=== PATIENT | male | born 2000 | race Hispanic/Latino ===

== ENCOUNTER 2018-06-17 18:09 | Emergency (ER) | payer OTHER, SELFPAY ==
--- NOTE | 2018-06-18 08:06 | EDPHYS ---
Physician Documentation [facility] Name: Carlos Enrique Kraft Age: 18 yrs Sex: Male : 2000 Arrival Date: 06/18/2018 Time: 07:18 Bed 14 Private MD: ED Physician Anjum Velazquez HPI: 06/18 08:17 This 18 yrs old Male presents to ER via Ambulatory with complaints of Foot jr8 Pain. 08:17 The complaints affect the dorsum of left foot. Onset: The symptoms/episode jr8 began/occurred gradually, 2 day(s) ago. Modifying factors: The symptoms are alleviated by nothing. the symptoms are aggravated by movement, weight bearing. Associated signs and symptoms: The patient has no apparent associated signs or symptoms. Severity of symptoms: At their worst the symptoms were mild, in the emergency department the symptoms are unchanged. The patient has not experienced similar symptoms in the past. The patient has not recently seen a physician. Patient noticed that his left 3rd toe was starting to look infected. Had drained mild amount of exudate from toe yesterday . Historical: - Allergies: 07:29 No Known Allergies; hb - Home Meds: 07:29 paroxetine oral oral [Active]; hb - PMHx: 07:29 None; hb - PSHx: 07:29 Tonsillectomy; hb - Immunization history:: Adult Immunizations up to date. - Social history:: Smoking status: Patient uses tobacco products, smokes one pack cigarettes per day. - Ebola Screening: : No symptoms or risks identified at this time. ROS: 08:17 Eyes: Negative for injury, pain, redness, and discharge, ENT: Negative for injury, jr8 pain, and discharge, Neck: Negative for injury, pain, and swelling, Cardiovascular: Negative for chest pain, palpitations, and edema, Respiratory: Negative for shortness of breath, cough, wheezing, and pleuritic chest pain, Abdomen/GI: Negative for abdominal pain, nausea, vomiting, diarrhea, and constipation, Back: Negative for injury and pain, MS/Extremity: Negative for injury and deformity, Neuro: Negative for headache, weakness, numbness, tingling, and seizure. 08:17 Skin: Positive for erythema, of the left 3rd toe. Exam: 08:17 Eyes: Pupils equal round and reactive to light, extra-ocular motions intact. Lids and jr8 lashes normal. Conjunctiva and sclera are non-icteric and not injected. Cornea within normal limits. Periorbital areas with no swelling, redness, or edema. ENT: Nares patent. No nasal discharge, no septal abnormalities noted. Tympanic membranes are normal and external auditory canals are clear. Oropharynx with no redness, swelling, or masses, exudates, or evidence of obstruction, uvula midline. Mucous membranes moist. Neck: Trachea midline, no thyromegaly or masses palpated, and no cervical lymphadenopathy. Supple, full range of motion without nuchal rigidity, or vertebral point tenderness. No Meningismus. Cardiovascular: Regular rate and rhythm with a normal S1 and S2. No gallops, murmurs, or rubs. Normal PMI, no JVD. No pulse deficits. Respiratory: Lungs have equal breath sounds bilaterally, clear to auscultation and percussion. No rales, rhonchi or wheezes noted. No increased work of breathing, no retractions or nasal flaring. Abdomen/GI: Soft, non-tender, with normal bowel sounds. No distension or tympany. No guarding or rebound. No evidence of tenderness throughout. Back: No spinal tenderness. No costovertebral tenderness. Full range of motion. MS/ Extremity: Pulses equal, no cyanosis. Neurovascular intact. Full, normal range of motion. Neuro: Awake and alert, GCS 15, oriented to person, place, time, and situation. Cranial nerves II-XII grossly intact. Motor strength 5/5 in all extremities. Sensory grossly intact. Cerebellar exam normal. Normal gait. 08:17 Skin: patient's left 3rd toe dorsal aspect has mild excoriated christian to DIP with mild erythema to that region. No abscess noted. No fluctuance noted . Vital Signs: 07:29 BP 143 / 92; Pulse 98; Resp 16; Temp 98.7; Pulse Ox 100% on R/A; Pain 2/10; hb MDM: 07:34 Patient medically screened. jr8 08:04 Data reviewed: vital signs, nurses notes, and as a result, I will discharge patient. jr8 Data interpreted: Pulse oximetry: on room air is 100 %. Interpretation: normal. Counseling: I had a detailed discussion with the patient and/or guardian regarding: the historical points, exam findings, and any diagnostic results supporting the discharge/admit diagnosis, the need for outpatient follow up, a family practitioner, to return to the emergency department if symptoms worsen or persist or if there are any questions or concerns that arise at home. Administered Medications: No medications were administered Disposition: 06/18/18 08:05 Discharged to Home. Impression: Cellulitis of left toe. - Condition is Stable. - Discharge Instructions: Cellulitis, Adult, Paronychia. - Prescriptions for Bactroban 2 % Topical Ointment - Apply to affected area 1 application by TOPICAL route every 12 hours; 30 gram. Keflex 500 mg Oral Capsule - take 1 capsule by ORAL route every 6 hours for 7 days; 28 capsule. - Medication Reconciliation Form, Thank You Letter, Antibiotic Education, Prescription Opioid Use form. - Follow up: Private Physician; When: 5 - 6 days; Reason: Wound Recheck, Recheck today's complaints, Continuance of care, Re-evaluation by your physician. - Problem is new. - Symptoms have improved. Addendum: 06/21/2018 19:30 Co-signature as Attending Physician, Anjum Velazquez MD. g s Signatures: Jerardo Ricardo PA PA jr8 Cordelia Levine RN RN Anjum Velazquez MD MD Dinorah Bower RN RN ls4 Corrections: (The following items were deleted from the chart) 06/18 08:17 08:05 06/18/2018 08:05 Discharged to Home. Impression: Cellulitis of left toe. ls4 Condition is Stable. Forms are Medication Reconciliation Form, Thank You Letter, Antibiotic Education, Prescription Opioid Use. Follow up: Private Physician; When: 5 - 6 days; Reason: Wound Recheck, Recheck today's complaints, Continuance of care, Re-evaluation by your physician. Problem is new. Symptoms have improved. jr8
--- NOTE | 2018-06-18 08:06 | ER ---
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 Transition of care: patient was not received from another setting of care. Onset of symptoms was June 2018. Risk Assessment: Do you want to hurt yourself or someone else? Patient reports no desire to harm self or others. Initial Sepsis Screen: Does the patient meet any 2 criteria? No. Patient's initial sepsis screen is negative. Does the patient have a suspected source of infection? No. Patient's initial sepsis screen is negative. Care prior to arrival: None. 07:28 Method Of Arrival: Ambulatory hb 07:28 Acuity: KRISTEL 4 hb Triage Assessment: 07:43 General: Appears in no apparent distress. Behavior is calm, cooperative. ls4 Historical: - Allergies: 07:29 No Known Allergies; hb - Home Meds: 07:29 paroxetine oral oral [Active]; hb - PMHx: 07:29 None; hb - PSHx: 07:29 Tonsillectomy; hb - Immunization history:: Adult Immunizations up to date. - Social history:: Smoking status: Patient uses tobacco products, smokes one pack cigarettes per day. - Ebola Screening: : No symptoms or risks identified at this time. Screenin:30 Abuse screen: Denies threats or abuse. Denies injuries from another. Nutritional hb screening: No deficits noted. Tuberculosis screening: No symptoms or risk factors identified. Fall Risk None identified. Assessment: 07:30 Pain: Complains of pain in dorsum of left foot. ls4 Vital Signs: 07:29 BP 143 / 92; Pulse 98; Resp 16; Temp 98.7; Pulse Ox 100% on R/A; Pain 2/10; hb ED Course: 07:18 Patient arrived in ED. tw3 07:24 Dinorah Bower, RN is Primary Nurse. ls4 07:29 Triage completed. hb 07:29 Arm band placed on. hb 07:30 Patient has correct armband on for positive identification. Call light in reach. Side ls4 rails up X 1. 07:34 Jerardo Ricardo PA is PHCP. jr8 07:34 Anjum Velazquez MD is Attending Physician. jr8 08:17 No provider procedures requiring assistance completed. ls4 08:17 Patient did not have IV access during this emergency room visit. ls4 Administered Medications: No medications were administered Outcome: 08:05 Discharge ordered by . jr8 08:15 Condition: good ls4 08:15 Discharged to home ambulatory, with family. ls4 08:15 Discharge instructions given to patient, family, Instructed on discharge instructions, follow up and referral plans. medication usage, Demonstrated understanding of instructions, follow-up care, medications, Prescriptions given X 2. 08:17 Patient left the ED. 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 hb
== END 2018-06-18 08:17 | disposition home or self-care (01) ==
LOC: ER 18:09
DX: L03.032 Cellulitis of left toe (principal); F17.210 Nicotine dependence, cigarettes, uncomplicated
CPT/HCPCS: 99282

== ENCOUNTER 2019-12-23 21:06 | Emergency (ER) | payer SELFPAY ==
[2019-12-23 22:29] LABS: Absolute Lymphocytes (CBC) 2.5 K/uL (0.7-4.9); Basophils % 0.7 % (0-1.3); Hematocrit 41.1 % (39.6-49.0); MPV 8.8 fL (7.6-11.3); Protime INR 0.88; RBC Red Blood Cell Count 4.55 M/uL (4.33-5.43)
[2019-12-23 22:44] LABS: ALT/SGPT 29 U/L (12-78); AST/SGOT 12 U/L (15-37); Albumin 4.3 g/dL (3.4-5.0); Alkaline Phosphatase 68 U/L (45-117); BUN Blood Urea Nitrogen 14 mg/dL (7-18); Bicarbonate 25 mmol/L (21-32); Bilirubin Direct 0.1 mg/dL (0-0.2); Bilirubin Total 0.3 mg/dL (0.2-1.0); Glucose Level 101 mg/dL (74-106); Magnesium 2.5 mg/dL (1.8-2.4); NT PRO-BNP 39 pg/mL (<125); Potassium 3.5 mmol/L (3.5-5.1); Protein, Total 7.5 g/dL (6.4-8.2); Sodium Level 143 mmol/L (136-145); Troponin (Emerg Dept Use Only) < 0.02 ng/mL (0.0-0.045)
[2019-12-24] MEDS ORDERED: NA CHLORIDE 0.9% 1,000 ML ONE (00:33)
[2019-12-24 00:55] LABS: Barbiturates NEGATIVE (NEGATIVE); Benzodiazepines NEGATIVE (NEGATIVE); Cocaine NEGATIVE (NEGATIVE); METHAMPHETAM NEGATIVE (NEGATIVE); Methadone NEGATIVE (NEGATIVE); Opiates NEGATIVE (NEGATIVE); Phencyclidine NEGATIVE (NEGATIVE); THC Cannibis NEGATIVE (NEGATIVE)
--- NOTE | 2019-12-24 02:33 | EDPHYS ---
Physician Documentation [facility] Name: Carlos Enrique Kraft Age: 19 yrs Sex: Male : 2000 Arrival Date: 12/23/2019 Time: 21:08 Bed 14 Private MD: ED Physician Geo Reed HPI: 12/23 00:01 This 19 yrs old Male presents to ER via Ambulatory with complaints of High pkl Blood Pressure, Heart Racing. 00:46 The patient or guardian reports chest pain that is located primarily in the substernal pkl area. The pain does not radiate. Associated signs and symptoms: Pertinent positives: palpitations, hypertension. Associated signs and symptoms: Pertinent positives: sore throat and fever. The chest pain is described as dull. Historical: - Allergies: 12/22 21:35 No Known Allergies; jb4 - Home Meds: 23:13 paroxetine HCl 20 mg oral tab 1 tab once daily [Active]; wh - PMHx: 21:35 palpitation; Hypertension; jb4 - PSHx: 21:35 None; jb4 - Immunization history:: Adult Immunizations not up to date. - Social history:: Smoking status: Patient reports the use of cigarette tobacco products, smokes one pack cigarettes per day. ROS: 12/23 00:46 Eyes: Negative for injury, pain, redness, and discharge. pkl ENT: Positive for sore throat. Neck: Negative for stiffness. Cardiovascular: Positive for chest pain. Respiratory: Negative for cough, shortness of breath. Abdomen/GI: Negative for abdominal pain, nausea, vomiting, and diarrhea. Back: Negative for acute changes. : Negative for urinary symptoms. MS/extremity: Negative for acute changes. Skin: Negative for rash. Neuro: Negative for altered mental status. Exam: 00:46 Head/Face: Normocephalic, atraumatic. Eyes: Pupils equal round and reactive to light, pkl extra-ocular motions intact. Lids and lashes normal. Conjunctiva and sclera are non-icteric and not injected. Cornea within normal limits. Periorbital areas with no swelling, redness, or edema. 00:46 ENT: Posterior pharynx: erythema, that is mild. 00:46 Neck: Exam negative for nuchal rigidity. 00:46 Chest/axilla: Exam negative for acute changes. 00:46 Cardiovascular: Rate: normal, Rhythm: regular. 00:46 Respiratory: the patient does not display signs of respiratory distress, Respirations: normal, Breath sounds: are clear throughout. 00:46 Abdomen/GI: Bowel sounds: normal, Palpation: abdomen is soft and non-tender, in all quadrants. 00:46 Back: Exam negative for acute changes. 00:46 : Exam negative for acute changes. 00:46 Musculoskeletal/extremity: Exam is negative for acute changes. 00:46 Skin: Exam negative for rash. 00:46 Neuro: Orientation: is normal, Mentation: is normal, Cranial nerves: grossly normal, Motor: is normal. Vital Signs: 12/22 21:33 BP 140 / 96 RA Sitting (auto/); Pulse 106; Resp 18; Temp 100.3(TE); Pulse Ox 100% on jb4 R/A; Weight 104.33 kg (R); Height 5 ft. 9 in. (175.26 cm); Pain 3/10; 23:13 BP 123 / 75; Pulse 87; Resp 20; Pulse Ox 100% on R/A; 12/23 01:00 BP 124 / 77; Pulse 79; Resp 16; Pulse Ox 100% on R/A; wh 03:00 BP 103 / 46; Pulse 73; Resp 18; Temp 98.8; Pulse Ox 97% on R/A; 12/22 21:33 Body Mass Index 33.96 (104.33 kg, 175.26 cm) jb4 MDM: 00:01 Patient medically screened. pkl 02:29 Data reviewed: vital signs, nurses notes, lab test result(s), EKG, radiologic studies. pk ED course: Patient feeling better. Discussed lab and X' rays with patient. Advised to stay home until Covid 19 result is available. Patient understood instructions. 12/22 21:45 Order name: Glucose, Ancillary Testing; Complete Time: 23:55 EDKS 12/22 21:52 Order name: Basic Metabolic Panel; Complete Time: 23:55 12/22 21:52 Order name: CBC with Diff; Complete Time: 23:55 12/22 21:52 Order name: LFT's; Complete Time: 23:55 12/22 21:52 Order name: Magnesium; Complete Time: 23:55 12/22 21:52 Order name: NT PRO-BNP; Complete Time: :55 12/22 21:52 Order name: PT-INR; Complete Time: :55 12/22 21:52 Order name: Troponin (emerg Dept Use Only); Complete Time: :55 12/22 21:52 Order name: XRAY Chest (1 view) 12/23 00:08 Order name: Strep; Complete Time: 02:25 [place] 12/23 00:08 Order name: COVID-19 [place] 12/23 00:08 Order name: UDS; Complete Time: 02:25 [place] 12/23 01:42 Order name: Throat Culture [facility] 12/22 21:52 Order name: EKG; Complete Time: :53 12/22 21:52 Order name: Cardiac monitoring; Complete Time: :59 12/22 21:52 Order name: EKG - Nurse/Tech; Complete Time: :59 12/22 21:52 Order name: IV Saline Lock; Complete Time: 12/22 21:52 Order name: Labs collected and sent; Complete Time: : 12/22 21:52 Order name: O2 Per Protocol; Complete Time: : 12/22 21:52 Order name: O2 Sat Monitoring; Complete Time: :59 Administered Medications: 00:39 Drug: NS 0.9% 1000 ml Route: IV; Rate: 1000 ml; Site: right antecubital; 03:07 Follow up: Response: No adverse reaction; IV Status: Completed infusion Point of Care Testing: Blood Glucose: 12/22 21:33 Blood Glucose: 101 mg/dL; jb4 Ranges: Critical Glucose Levels:Adult <50 mg/dl or >400 mg/dl <40 mg/dl or >180 mg/dl Disposition: 12/24/19 02:32 Discharged to Home. Impression: Fever. Pharyngitis. Fever. - Condition is Stable. - Medication Reconciliation Form, Thank You Letter, Antibiotic Education, Prescription Opioid Use, Work release form form. - Follow up: Private Physician; When: 2 - 3 days; Reason: Re-evaluation by your physician. - Problem is new. - Symptoms have improved. Signatures: Dispatcher [employer] EDGeo Barton MD MD pkl Waters, Shelly, DRAFTER SEISMOGRAPH-C DRAFTER SEISMOGRAPH-Csnw Pantera Morelos, RN RN jb4 Helio Tucker Corrections: (The following items were deleted from the chart) 23:13 21:35 Home Meds: None; kevin 12/23 03:07 02:32 12/24/2019 02:32 Discharged to Home. Impression: Fever. Pharyngitis. Fever. Condition is Stable. Forms are Medication Reconciliation Form, Thank You Letter, Antibiotic Education, Prescription Opioid Use. Follow up: Private Physician; When: 2 - 3 days; Reason: Re-evaluation by your physician. Problem is new. Symptoms have improved. pkl
--- NOTE | 2019-12-24 02:33 | ER ---
Nurse's Notes [facility] Name: Carlos Enrique Kraft Age: 19 yrs Sex: Male : 2000 Arrival Date: 12/23/2019 Time: 21:08 Bed 14 Private MD: Diagnosis: Fever. Pharyngitis. Fever Presentation: 12/22 21:35 Chief complaint: Patient states: I feel like I'm going to pass out. I've been drinking jb4 a lot of water at work and sweating alot but not peeing. 21:35 Coronavirus screen: Client denies travel out of the [place] in the last 14 days. At this jb4 time, the client does not indicate any symptoms associated with coronavirus-19. Ebola Screen: No symptoms or risks identified at this time. Initial Sepsis Screen: Does the patient meet any 2 criteria? HR > 90 bpm. Yes Does the patient have a suspected source of infection? No. Patient's initial sepsis screen is negative. Risk Assessment: Do you want to hurt yourself or someone else? Patient reports no desire to harm self or others. 21:35 Method Of Arrival: Ambulatory jb4 21:35 Acuity: KRISTEL 3 jb4 21:35 Transition of care: patient was not received from another setting of care. 4 21:36 Onset of symptoms was December 23, 2019 at 18:00. 4 Historical: - Allergies: 21:35 No Known Allergies; jb4 - Home Meds: 23:13 paroxetine HCl 20 mg oral tab 1 tab once daily [Active]; - PMHx: 21:35 palpitation; Hypertension; jb4 - PSHx: 21:35 None; jb4 - Immunization history:: Adult Immunizations not up to date. - Social history:: Smoking status: Patient reports the use of cigarette tobacco products, smokes one pack cigarettes per day. Screenin:00 Abuse screen: Denies threats or abuse. Denies injuries from another. Nutritional wh screening: No deficits noted. Tuberculosis screening: No symptoms or risk factors identified. Fall Risk None identified. Assessment: 21:50 General: Appears in no apparent distress. Behavior is cooperative, appropriate for age, wh crying. Pain: Complains of pain in chest Pain does not radiate. Pain currently is 3 out of 10 on a pain scale. Quality of pain is described as squeezing. Neuro: Level of Consciousness is awake, alert, obeys commands, Oriented to person, place, time, situation, Appropriate for age. Cardiovascular: Heart tones S1 S2 Rhythm is sinus tachycardia. Respiratory: Airway is patent Respiratory effort is even, unlabored, Respiratory pattern is regular, symmetrical, Breath sounds are clear bilaterally. GI: Abdomen is flat, non-distended. : No signs and/or symptoms were reported regarding the genitourinary system. EENT: No signs and/or symptoms were reported regarding the EENT system. Derm: Skin is intact, is healthy with good turgor, Skin is pink, warm \T\ dry. normal. Musculoskeletal: Circulation, motion, and sensation intact. 23:10 Reassessment: Patient appears in no apparent distress at this time. No changes from previously documented assessment. Patient and/or family updated on plan of care and expected duration. Pain level reassessed. Patient is alert, oriented x 3, equal unlabored respirations, skin warm/dry/pink. 12/23 00:45 Reassessment: Patient and/or family updated on plan of care and expected duration. Pain wh level reassessed. Patient is alert, oriented x 3, equal unlabored respirations, skin warm/dry/pink. 03:00 Reassessment: Patient and/or family updated on plan of care and expected duration. Pain wh level reassessed. Patient is alert, oriented x 3, equal unlabored respirations, skin warm/dry/pink. Vital Signs: 12/22 21:33 BP 140 / 96 RA Sitting (auto/); Pulse 106; Resp 18; Temp 100.3(TE); Pulse Ox 100% on jb4 R/A; Weight 104.33 kg (R); Height 5 ft. 9 in. (175.26 cm); Pain 3/10; 23:13 BP 123 / 75; Pulse 87; Resp 20; Pulse Ox 100% on R/A; wh 12/23 01:00 BP 124 / 77; Pulse 79; Resp 16; Pulse Ox 100% on R/A; wh 03:00 BP 103 / 46; Pulse 73; Resp 18; Temp 98.8; Pulse Ox 97% on R/A; wh 12/22 21:33 Body Mass Index 33.96 (104.33 kg, 175.26 cm) jb4 ED Course: 12/22 21:08 Patient arrived in ED. cl3 21:35 Arm band placed on right wrist. EKG completed in triage. Results shown to MD. jb4 21:42 Triage completed. jb4 21:45 Helio Tucker is Primary Nurse. 21:50 Inserted saline lock: 20 gauge in right antecubital area, using aseptic technique. Blood collected. 22:00 Patient has correct armband on for positive identification. Placed in gown. Bed in low wh position. Call light in reach. Side rails up X 1. pin attacher on. Pulse ox on. NIBP on. 22:33 XRAY Chest (1 view) In Process Unspecified. EDMS 12/23 00:01 Geo Reed MD is Attending Physician. pkl 03:06 No provider procedures requiring assistance completed. IV discontinued, intact, bleeding controlled, No redness/swelling at site. Administered Medications: 00:39 Drug: NS 0.9% 1000 ml Route: IV; Rate: 1000 ml; Site: right antecubital; 03:07 Follow up: Response: No adverse reaction; IV Status: Completed infusion Point of Care Testing: Blood Glucose: 12/22 21:33 Blood Glucose: 101 mg/dL; jb4 Ranges: Outcome: 12/23 02:32 Discharge ordered by . pkl 03:06 Discharged to home ambulatory. 03:06 Condition: stable 03:06 Discharge instructions given to patient, Instructed on discharge instructions, follow up and referral plans. POC Demonstrated understanding of instructions, follow-up care, medications, POC 03:07 Patient left the ED. Addendum: 12/27/2019 18:22 Addendum: COVID-19 Result: Negative result given to RN to notify pt. Notified pt of i w negative COVID 19 swab results. Pt advised that even with a negative test result they should remain in isolation until symptom free for 3 days without medication. Pt also advised to return to the ED for worsening symptoms. Signatures: Dispatcher [employer] EDTN Geo Reed MD MD pkl Jackelin Tomlinson RN RN iw Bryson, James, RN RN jb4 Helio Tucker Jem Callejas cl3 Corrections: (The following items were deleted from the chart) 12/22 21:42 21:35 Chief complaint: Patient states: I feel like I'm going to pass out. I've been jb4 drinking a lot but not peeing jb4 23:13 21:35 Home Meds: None; jb4
--- NOTE | 2019-12-24 07:28 | RAD REPORT ---
EXAM DESCRIPTION: RAD - Chest Single View - 12/23/2019 10:33 pm CLINICAL HISTORY: CHEST PAIN, hypertension COMPARISON: None TECHNIQUE: AP portable chest image was obtained 12/23/2019 10:33 pm . FINDINGS: Lungs are clear. Heart and vasculature are normal. No measurable pleural effusion and no p neumothorax. No acute bony abnormality seen. No acute aortic findings suspected. IMPRESSION: No acute cardiopulmonary process.
[2019-12-24 14:42] VITALS: BP 103/46; TEMP 98.8; O2SAT 97
== END 2019-12-24 03:07 | disposition home or self-care (01) ==
LOC: ER 21:06
DX: J02.9 Acute pharyngitis, unspecified (principal); Z20.828 Contact with and (suspected) exposure to other viral communicable diseases; I10 Essential (primary) hypertension; F17.210 Nicotine dependence, cigarettes, uncomplicated
CPT/HCPCS: 36415; 71045; 80048; 80076; 80307; 82947; 83735; 83880; 84484; 85025; 85610; 87070; 87081; 93005; 96360; 96361; 99284; J7030; U0002